=== PATIENT | female | born 1970 | race Caucasian/White ===

== ENCOUNTER 2016-09-03 17:34 | Emergency (ER) | payer OTHER ==
--- NOTE | 2016-09-03 18:57 | DIAGNOSTIC IMAGING REPORT ---
PROCEDURE: CT HEAD WITHOUT CONTRAST INDICATION: Syncope and headache. TECHNIQUE: Noncontrast axial images with sagittal and coronal reformations. COMPARISON: None. FINDINGS: Sulci, ventricular system, and brain parenchyma are normal. No evidence of acute intracranial process. Visualized mastoids and sinuses are clear. IMPRESSION: 1. Negative non-enhanced head CT. 2. Findings discussed with Dr. Cai at 06:55 p.m., [place] Standard Time.
--- NOTE | 2016-09-03 19:11 | DIAGNOSTIC IMAGING REPORT ---
PROCEDURE: XR CHEST 1 VIEW INDICATION: SYNCOPE TECHNIQUE: Portable AP view 06:46 p.m. COMPARISON: None. FINDINGS: Lungs are clear. Heart and mediastinum are normal. Thorax is normal. IMPRESSION: 1. Negative chest.
--- NOTE | 2016-09-03 21:18 | ED ORDER SUMMARY ---
..... Patient: SHERRI BAXTER OrderSheet [facility] VisitID: [id number] [place], [place] [id number] 46y, F Registration Date/Time: 09/03/2016 ORDER SHEET Weight: 65.7 kg (stated) Allergies: Amoxicillin, Latex, Opiates, Quinolones, Sulfa Antibiotics GENERAL ORDERS: Chest 1V Urgent (18:09/03/2016 Tami MARCIAL) (Ack 18:39 LNations ER Tech1) (19:02 MCampbell) Retail Associate (Continuous) (18:09/03/2016 Tami MARCIAL) (Ack 18:38 LNations ER Tech1) (19:59 RMarsden R.N.) CT Head wo Cont Urgent (18:09/03/2016 Tami MARCIAL) (Ack 18:40 LNations ER Tech1) (19:02 MCampbell) CBC w Diff Urgent (18:09/03/2016 Tami MARCIAL) (Ack 18:38 LNations ER Tech1) (Collected 19:59 RMarsden R.N.) (21:04 RMarsden R.N.) CMP Urgent (18:09/03/2016 Tami MARCIAL) (Ack 18:39 LNations ER Tech1) (Collected 19:59 RMarsden R.N.) (21:04 RMarsden R.N.) UA-Culture if indicated Urgent (18:09/03/2016 Tami MARCIAL) (Ack 18:39 LNations ER Tech1) (Collected 20:28 RMarsden R.N.) (21:04 RMarsden R.N.) PT with INR Urgent (18:09/03/2016 Tami MARCIAL) (Ack 18:39 LNations ER Tech1) (Collected 19:59 RMarsden R.N.) (21:04 RMarsden R.N.) PTT Urgent (18:09/03/2016 Tami MARCIAL) (Ack 18:39 LNations ER Tech1) (Collected 19:59 RMarsden R.N.) (21:04 RMarsden R.N.) CPK Urgent (18:09/03/2016 Tami MARCIAL) (Ack 18:39 LNations ER Tech1) (Collected 19:59 RMarsden R.N.) (21:04 RMarsden R.N.) Troponin-I Urgent (18:32 09/03/2016 Tami MARCIAL) (Ack 18:39 LNations ER Tech1) (Collected 19:59 RMarsden R.N.) (21:04 RMarsden R.N.) EKG - ER Stat (18:32 09/03/2016 Tami MARCIAL) (Ack 18:38 LNations ER Tech1) (19:10 CHagerty ER Transportation Attendant) Pulse oximeter (18:32 09/03/2016 Tami MARCIAL) (Ack 18:38 LNations ER Tech1) (19:59 RMarsden R.N.) Vitals - Orthostatic (18:32 09/03/2016 Tami MARCIAL) (Ack 18:38 LNations ER Tech1) (20:58 RMarsden R.N.) H. Pylori Antibody IgG Stat (18:39 09/03/2016 Tami MARCIAL) (Ack 18:56 LNations ER Tech1) (Collected 20:58 RMarsden R.N.) (22:05 RMarsden R.N.) Vitals - Orthostatic (18:42 09/03/2016 Tami MARCIAL) (Ack 18:56 LNations ER Tech1) (20:58 RMarsden R.N.) MEDICATION ORDERS: IV FLUIDS: IV Saline Lock (18:32 09/03/2016 Tami MARCIAL) (20:00 RMarsden R.N.) IV NS with Normal Saline 1 Liter: initial bolus 1000 mL (1000 mL/hr), then 1000 mL/hr for X2 (NOW) (20:45 09/03/2016 RMarsden R.N. verbal order read back to Tami MARCIAL) (Ack 20:46 RMarsden R.N.) (22:05 RMarsden R.N.) Verbal order read back and verified ORDER SHEET NOTES: [Electronically signed by Sherri Gordon R.N. (05:44 09/04/2016)] [Electronically signed by Oscar Cai MD (09:18 09/05/2016)] [Electronically locked/signed by Sherri Gordon R.N. (05:44 09/04/2016)]
--- NOTE | 2016-09-03 21:18 | ED CLINICAL REPORT ---
Clinical Report - Physicians/Mid Levels [facility] [address] [place] [address] 09/03/2016 17:35 Patient: AMI BAXTER Time Seen: 17:47. Arrived- By private vehicle. Historian- patient. HISTORY OF PRESENT ILLNESS The patient has recovered. Chief Complaint: SINGLE SYNCOPAL EPISODE. This occurred today. It was abrupt in onset. Event was not witnessed. The patient felt faint and lost consciousness. No seizure activity, incontinence or apnea noted. At time of event, she was standing and had just stood up. The patient had preceding symptoms of light-headedness. She had preceding symptoms of nausea (chronically). No preceding symptoms of chest pain or abdominal pain. Had a single episode. The episode lasted minutes. No injuries noted. Similar symptoms previously: Once. Diagnosis: (PVCs). REVIEW OF SYSTEMS Has had a hysterectomy. No chills, fever, sweats, calf pain or chest pain. No cough, difficulty breathing, pedal edema, bloody stools or urinary problems. She has had black stools. She has had loose stools (chronically). she reports that she has had chronic problems with nausea and vomiting and "I am not able to eat." she was seen earlier today by her primary care provider and has a HIDA scan and a gastroenterology appointment pending. additionally, she reports that in the past she has had a workup for a syncopal event and palpitations "PVCs." She says that with medications or her doctor was not able to induce these so she is not yet a candidate for an ablation. All systems otherwise negative, except as recorded above. PAST HISTORY ( PCP - [facility] - Jolie Hui). Problems: Abdominal Pain. PVC - Premature Venticular Complex(s). Knee Injury. Immunizations. Additional Surgeries: Appendectomy. Bladder sling removal . Bladder Suspension. Dilatation & Curettage. Hernia Repair. Hysterectomy. Tubal Ligation. Medications: Pantoprazole Sodium Oral. Allergies: Amoxicillin. Latex. Opiates. Quinolones. Sulfa Antibiotics. SOCIAL HISTORY Current every day heavy tobacco smoker (cigarette)- less than 1 pack per day. No alcohol use or drug use. Is a local resident. She lives with a family member. FAMILY HISTORY Stroke in first-degree relative (mother); cancer in first-degree relative (father and sibling). ADDITIONAL NOTES The nursing notes have been reviewed. PHYSICAL EXAM Vital Signs: 09/03/2016 17:35 BP: 142/83. HR: 86. RR: 16. O2 saturation: 98%. Temp: 97.8 F. Pain level now: 12/01. Have been reviewed. Appearance: Alert. No acute distress. Eyes: Pupils equal, round and reactive to light. No nystagmus. ENT: Normal ENT inspection. Moist mucous membranes. Pharynx normal. Neck: Normal inspection. Neck supple. No carotid bruit. CVS: Normal heart rate and rhythm. Heart sounds normal. Respiratory: No respiratory distress. Breath sounds normal. Abdomen: Soft and nontender. No organomegaly. Back: Normal inspection. No CVA tenderness. Rectal: Rectal exam normal and nontender. Stool heme negative. (POC test reference range: negative). (a female business objects developer was present). Skin: Skin warm and dry. Normal skin color. Normal skin turgor. Extremities: Extremities exhibit normal ROM. No calf tenderness. No lower extremity edema. Neuro: Alert. Speech normal. Cranial nerves normal (as tested). No cerebellar findings. No motor deficit. No sensory deficit. LABS, X-RAYS, AND EKG EKG: Normal EKG. Rate: 86. Prior EKG unavailable. The study has been independently viewed by me. Chest X-ray: Normal Chest X-Ray. CT Head: (IMPRESSION: 1. Negative non-enhanced head CT.). The study was interpreted contemporaneously by me and discussed with the radiologist. Laboratory Tests: UA-Culture if indicated: (DELANO: 09/03/2016 20:22) ( MsgRcvd 09/03/2016 20:42) IP Test Result Flag Units (Reference) URINE COLOR YELLOW URINE APPEARANCE CLEAR URINE GLUCOSE NEGATIVE (NEGATIVE) URINE BILIRUBIN NEGATIVE (NEGATIVE) URINE KETONE 1+ (NEGATIVE) URINE SPECIFIC GRAVITY 1.020 (1.010-1.030) URINE PH 6.0 (5.0-8.0) URINE PROTEIN NEGATIVE (NEGATIVE) URINE UROBILINOGEN 0.2 EU/dL (0.2-1.0) URINE NITRITE NEGATIVE (NEGATIVE) URINE BLOOD 2+ (NEGATIVE) URINE LEUK ESTERASE NEGATIVE (NEGATIVE) CBC w Diff: (DELANO: 09/03/2016 19:44) ( [facility] 09/03/2016 20:13) Final results Test Result Flag Units (Reference) WHITE BLOOD COUNT 8.4 K/uL (4.5-11.5) RED BLOOD COUNT 4.58 M/uL (4.00-5.20) HEMOGLOBIN 13.9 gm/dL (12.0-16.0) HEMATOCRIT 40.7 % (36.0-46.0) MEAN CELL VOLUME 89 fL (80-100) MEAN CORPUSCULAR HGB 30 pg (26-34) MEAN CORPUSCULAR HGB CONC 34 g/dL (31-37) RED CELL DISTRIBUTION WIDTH 13.0 % (11.6-14.8) PLATELET COUNT 301 K/uL (150-400) NEUTROPHIL % 65.2 % (50-75) LYMPH % 24.6 L % (25-40) MONO % 8.6 % (3-14) EOSINOPHIL % 1.0 % (0-4) BASOPHIL % 0.6 % (0-2) PT with INR: (DELANO: 09/03/2016 19:44) ( [facility] 09/03/2016 20:13) Final results Test Result Flag Units (Reference) INR 1.0 (0.8-1.2) Low Intensity Therapy: INR 1.5-2.0 PT range 18.5-23.1Mod.Intensity Therapy: INR 2.0-3.0 PT range 23.1-31.5High Intensity Therapy: INR 2.5-3.5 PT range 27.4-35.5High Intensity Therapy 2: INR 3.0-4.0 PT range 31.5-39.3 APTT 28 SECONDS (24-34) CMP: (DELANO: 09/03/2016 19:44) ( [facility] 09/03/2016 20:12) Final results Test Result Flag Units (Reference) GLUCOSE 93 mg/dL (70-110) BUN 12 mg/dL (7-18) CREATININE 0.9 mg/dL (0.6-1.3) Estimated GFR >60 mL/min Estimated GFR- >60 mL/min Note: Persistent reduction over 3 months in eGFR<60 mL/min/1.73 m2 defines CKD. Patients with eGFR values>=60 mL/min/1.73 m2 may also have CKD if evidence ofpersistent proteinuria. Additional information may be foundat www.kidney.org. SODIUM 141 mmol/L (136-145) POTASSIUM 3.7 mmol/L (3.5-5.1) CHLORIDE 106 mmol/L (98-107) CARBON DIOXIDE 26 mmol/L (21-32) CALCIUM 8.6 mg/dL (8.5-10.1) TOTAL PROTEIN 7.3 g/dL (6.4-8.2) ALBUMIN 3.8 g/dL (3.3-5.0) BILIRUBIN, TOTAL 0.4 mg/dL (0.0-1.0) ALKALINE PHOSPHATASE 46 U/L (46-116) AST (SGOT) 16 U/L (15-37) ALT (SGPT) 20 U/L (12-78) CPK 92 U/L (24-260) TROPONIN I <0.05 L ng/mL (0.00-1.5) TROPONIN REFERENCE RANGE:<0.1 NEGATIVE0.1-1.5 INDETERMINANT>1.5 POSITIVE . PROGRESS AND PROCEDURES Course of Care: Patient is stable. Patient/family counseled. Old medical records reviewed. Disposition: Discharged. Condition: stable. CLINICAL IMPRESSION Gastroesophageal reflux disease. Syncope. Diarrhea anorexia. INSTRUCTIONS Drink plenty of fluids. Warnings: Further evaluation is necessary. GENERAL WARNINGS: Return or contact your physician immediately if your condition worsens or changes unexpectedly, if not improving as expected, or if other problems arise. Your Current Medications: CONTINUE TAKING THE FOLLOWING MEDICATIONS: Pantoprazole Sodium Oral. Follow-up: Follow up with your doctor [facility] in seven days. Call for the next available appointment. Follow up with a manager loan and manager print as scheduled. Understanding of the discharge instructions verbalized by patient. (Electronically signed by Oscar Cai MD 09/05/2016 9:18)
--- NOTE | 2016-09-03 21:18 | ED ORDER SUMMARY ---
..... Patient: SHERRI BAXTER OrderSheet [facility] VisitID: [id number] [place], [place] [id number] 46y, F Registration Date/Time: 09/03/2016 ORDER SHEET Weight: 65.7 kg (stated) Allergies: Amoxicillin, Latex, Opiates, Quinolones, Sulfa Antibiotics GENERAL ORDERS: Chest 1V Urgent (18:09/03/2016 Tami MARCIAL) (Ack 18:39 LNations ER Tech1) (19:02 MCampbell) Quality Engineer Medical Device (Continuous) (18:09/03/2016 Tami MARCIAL) (Ack 18:38 LNations ER Tech1) (19:59 RMarsden R.N.) CT Head wo Cont Urgent (18:09/03/2016 Tami MARCIAL) (Ack 18:40 LNations ER Tech1) (19:02 MCampbell) CBC w Diff Urgent (18:09/03/2016 Tami MARCIAL) (Ack 18:38 LNations ER Tech1) (Collected 19:59 RMarsden R.N.) (21:04 RMarsden R.N.) CMP Urgent (18:09/03/2016 Tami MARCIAL) (Ack 18:39 LNations ER Tech1) (Collected 19:59 RMarsden R.N.) (21:04 RMarsden R.N.) UA-Culture if indicated Urgent (18:09/03/2016 Tami MARCIAL) (Ack 18:39 LNations ER Tech1) (Collected 20:28 RMarsden R.N.) (21:04 RMarsden R.N.) PT with INR Urgent (18:09/03/2016 Tami MARCIAL) (Ack 18:39 LNations ER Tech1) (Collected 19:59 RMarsden R.N.) (21:04 RMarsden R.N.) PTT Urgent (18:09/03/2016 Tami MARCIAL) (Ack 18:39 LNations ER Tech1) (Collected 19:59 RMarsden R.N.) (21:04 RMarsden R.N.) CPK Urgent (18:09/03/2016 Tami MARCIAL) (Ack 18:39 LNations ER Tech1) (Collected 19:59 RMarsden R.N.) (21:04 RMarsden R.N.) Troponin-I Urgent (18:32 09/03/2016 Tami MARCIAL) (Ack 18:39 LNations ER Tech1) (Collected 19:59 RMarsden R.N.) (21:04 RMarsden R.N.) EKG - ER Stat (18:32 09/03/2016 Tami MARCIAL) (Ack 18:38 LNations ER Tech1) (19:10 CHagerty ER Spine Supervisor) Pulse oximeter (18:32 09/03/2016 Tami MARCIAL) (Ack 18:38 LNations ER Tech1) (19:59 RMarsden R.N.) Vitals - Orthostatic (18:32 09/03/2016 Tami MARCIAL) (Ack 18:38 LNations ER Tech1) (20:58 RMarsden R.N.) H. Pylori Antibody IgG Stat (18:39 09/03/2016 Tami MARCIAL) (Ack 18:56 LNations ER Tech1) (Collected 20:58 RMarsden R.N.) (22:05 RMarsden R.N.) Vitals - Orthostatic (18:42 09/03/2016 Tami MARCIAL) (Ack 18:56 LNations ER Tech1) (20:58 RMarsden R.N.) MEDICATION ORDERS: IV FLUIDS: IV Saline Lock (18:32 09/03/2016 Tami MARCIAL) (20:00 RMarsden R.N.) IV NS with Normal Saline 1 Liter: initial bolus 1000 mL (1000 mL/hr), then 1000 mL/hr for X2 (NOW) (20:45 09/03/2016 RMarsden R.N. verbal order read back to Tami MARCIAL) (Ack 20:46 RMarsden R.N.) (22:05 RMarsden R.N.) Verbal order read back and verified ORDER SHEET NOTES: [Electronically signed by Sherri Gordon R.N. (05:44 09/04/2016)] [Electronically signed by Oscar Cai MD (09:18 09/05/2016)] [Electronically locked/signed by Sherri Gordon R.N. (05:44 09/04/2016)]
--- NOTE | 2016-09-03 21:18 | ED NURSING NOTES ---
Clinical Report - Nurses [facility] [address] [place] [address] 09/03/2016 17:35 Patient: SHERRI BAXTER TRIAGE Triage time 17:35. Chief Complaint: ABDOMINAL PAIN, NAUSEA, VOMITING and DIARRHEA. SEPSIS SCREEN: Sepsis Screen. Negative (no infection suspected/documented). --17:39 Arabella Palacio R.N. 17:35 09/03/16. BP: 142/83. HR: 86. RR: 16. O2 saturation: 98%. Temp: 97.8 F. Pain level now: 12/01. --17:39 Arabella Palacio R.N. Acuity: LEVEL 4. --17:40 Arabella Palacio R.N. Weight: 65.7 kg stated. Height/Length: 64 inches Per Patient. BMI: 24.9. --17:39 Arabella Palacio R.N. Medications Pentraprozol. --18:45 Arabella Palacio R.N. Allergies Amoxicillin. Latex. Opiates. Quinolones. Sulfa Antibiotics. --18:45 Arabella Palacio R.N. History Arrived by EMS. Historian: patient. Accompanied by friend. Primary physician (Kathy). ( Pt just got home from seeing her Dr when her friend said she found her on the floor sweating, dizzy, unresponsive. She was disoriented and unable to focus on anything when she regained consciousness.). This started just prior to arrival. ( Pt was at [facility] last night and said they were "all bitches" and told her there was nothing wrong with her.). Treatment PLATE MOLDER: Seen within the last 30 days at another facility in the ED. (Pt seen at [facility] last night (friend has paperwork from that visit)). PAST MEDICAL HX: Immunizations: status is unknown. --17:39 Arabella Palacio R.N. ( Patient states all this pain started in June). --17:40 Arabella Palacio R.N. SOCIAL HX: Light tobacco smoker- less than 1/2 a pack per day. Occasional alcohol use. No drug use. No infectious disease exposure. SELF HARM ASSESSMENT: A self harm assessment was performed. (Pt unable to answer seriously). FALL RISK ASSESSMENT: Fall risk assessment completed. No fall risk identified. --17:41 Arabella Palacio R.N. PROBLEMS: Abdominal Pain. PVC - Premature Venticular Complex(s). Knee Injury. Immunizations. --18:45 Arabella Palacio R.N. ADDITIONAL SURGERIES: Appendectomy. Bladder sling removal . Bladder Suspension. Dilatation & Curettage. Hernia Repair. Hysterectomy. Tubal Ligation. --18:46 Arabella Palacio R.N. Interventions ID band on patient. --17:39 Arabella Palacio R.N. PHYSICAL ASSESSMENT To room via stretcher. Patient gowned. GENERAL / NEURO / PSYCH: Alert. Oriented X 4. Appears anxious. RESPIRATORY: Respirations not labored. CVS: Normal sinus rhythm noted. Capillary refill less than 2 seconds. SKIN: Skin is warm and dry. --17:42 Arabella Palacio R.N. NURSING PROGRESS NOTES Patient gowned. Reassurance given. Two patient identifiers checked. Call light placed in reach. Side rails up. Bed placed in lowest position. Brakes of bed on. Patient ready for evaluation- ED physician notified. --17:42 Arabella Palacio R.N. Patient transported to radiology by stretcher with tech. (18:39). --18:39 Arabella Palacio R.N. Patient returned from radiology by stretcher with tech. (18:48). --18:48 Arabella Palacio R.N. EKG time: (1907). EKG was ordered, performed and shown to the ED physician. done by RT. --19:11 Jason Chew, ER Company Accountant 19:17. Care transferred and report received (from Arabella FITZGERALD). --19:58 Sherri Gordon R.N. 19:44 09/03/2016 Site #1 started via IV in the right wrist with an 20g angiocath; one attempt. Blood drawn: rainbow set. Labeled in the presence of the patient and sent to the lab. Saline lock flushed with 10 mL saline. --20:00 Sherri Gordon R.N. 19:32. Patient ID band checked for patient name and birthdate: patient confirmed. Blood samples drawn from the right wrist by nurse per protocol ; labeled in presence of the patient: rainbow set. Line flushed with 10 mL normal saline post blood draw. Hemoccult test negative. (POC test reference range: negative). --20:20 Sherri Gordon R.N. 19:56. ( witnessed rectal exam performed by ED MD (10 minutes). see guaiac results above.). --20:21 Sherri Gordon R.N. 20:00. ( patient ambulated to bathroom.). --20:21 Sherri Gordon R.N. 20:29 09/03/16. Patient ID band checked for patient name and birthdate: patient confirmed. Instructions provided to collect clean catch urine and patient verbalized understanding. Clean catch urine collected with return of yellow-colored clear urine; sample sent to lab for urinalysis. Specimen labeled in the presence of the patient. --20:29 Sherri Gordon R.N. ( orthostatic vitals performed (see vitals flow sheet).). --21:04 Sherri Gordon R.N. 19:56 09/03/2016 Started bag #1 1000 mL IV Fluids IV NS (Saline); bolus of 1000 mL wide open via site #1. Allergies verified and confirmed 5 rights. IV patency established. IV site checked: no pain, redness, or swelling. IV flushed thoroughly pre- and post-medication administration. Completed per protocol. --22:05 Sherri Gordon R.N. 21:51 09/03/2016 Site #1 removed upon discharge. Manual pressure and bandaid applied. --22:06 Sherri Gordon R.N. 21:51 09/03/2016 IV Fluids IV NS Discontinued: bag #1 completed upon discharge. Total amount infused: 1000 mL. IV patency established. IV site checked: no pain, redness, or swelling. IV flushed thoroughly. --22:06 Sherri Gordon R.N. DISPOSITION / DISCHARGE 22:01. No learning barriers present. Discharge instructions provided and reviewed with the patient. Reviewed referrals. Reviewed diet. Patient and physical therapy director verbalized understanding. Written instructions provided in Dutch. The patient was discharged home and accompanied by physical therapy director. She left the Emergency Department ambulatory and via private vehicle. Laundry Sorter driving. --22:04 Sherri Gordon R.N. 21:58 09/03/16. BP: 114/66. HR: 81. RR: 17. O2 saturation: 100% on room air. Temp: deferred. Pain level now: 0/10. --22:04 Sherri Gordon R.N. Locked/Released at 09/04/2016 5:44 by Sherri Gordon R.N.
--- NOTE | 2016-09-03 21:18 | ED NURSING NOTES ---
Clinical Report - Nurses [address] [place] [address] 09/03/2016 17:35 Patient: SHERRI BAXTER TRIAGE Triage time 17:35. Chief Complaint: ABDOMINAL PAIN, NAUSEA, VOMITING and DIARRHEA. SEPSIS SCREEN: Sepsis Screen. Negative (no infection suspected/documented). --17:39 Arabella Palacio R.N. 17:35 09/03/16. BP: 142/83. HR: 86. RR: 16. O2 saturation: 98%. Temp: 97.8 F. Pain level now: 12/01. --17:39 Arabella Palacio R.N. Acuity: LEVEL 4. --17:40 Arabella Palacio R.N. Weight: 65.7 kg stated. Height/Length: 64 inches Per Patient. BMI: 24.9. --17:39 Arabella Palacio R.N. Medications Pentraprozol. --18:45 Arabella Palacio R.N. Allergies Amoxicillin. Latex. Opiates. Quinolones. Sulfa Antibiotics. --18:45 Arabella Palacio R.N. History Arrived by EMS. Historian: patient. Accompanied by friend. Primary physician (Kathy). ( Pt just got home from seeing her Dr when her friend said she found her on the floor sweating, dizzy, unresponsive. She was disoriented and unable to focus on anything when she regained consciousness.). This started just prior to arrival. ( Pt was at [facility] last night and said they were "all bitches" and told her there was nothing wrong with her.). 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 (Pt seen at [facility] last night (friend has paperwork from that visit)). PAST MEDICAL HX: Immunizations: status is unknown. --17:39 Arabella Palacio R.N. ( Patient states all this pain started in June). --17:40 Arabella Palacio R.N. SOCIAL HX: Light tobacco smoker- less than 1/2 a pack per day. Occasional alcohol use. No drug use. No infectious disease exposure. SELF HARM ASSESSMENT: A self harm assessment was performed. (Pt unable to answer seriously). FALL RISK ASSESSMENT: Fall risk assessment completed. No fall risk identified. --17:41 Arabella Palacio R.N. PROBLEMS: Abdominal Pain. PVC - Premature Venticular Complex(s). Knee Injury. Immunizations. --18:45 Arabella Palacio R.N. ADDITIONAL SURGERIES: Appendectomy. Bladder sling removal . Bladder Suspension. Dilatation & Curettage. Hernia Repair. Hysterectomy. Tubal Ligation. --18:46 Arabella Palacio R.N. Interventions ID band on patient. --17:39 Arabella Palacio R.N. PHYSICAL ASSESSMENT To room via stretcher. Patient gowned. GENERAL / NEURO / PSYCH: Alert. Oriented X 4. Appears anxious. RESPIRATORY: Respirations not labored. CVS: Normal sinus rhythm noted. Capillary refill less than 2 seconds. SKIN: Skin is warm and dry. --17:42 Arabella Palacio R.N. NURSING PROGRESS NOTES Patient gowned. Reassurance given. Two patient identifiers checked. Call light placed in reach. Side rails up. Bed placed in lowest position. Brakes of bed on. Patient ready for evaluation- ED physician notified. --17:42 Arabella Palacio R.N. Patient transported to radiology by stretcher with tech. (18:39). --18:39 Arabella Palacio R.N. Patient returned from radiology by stretcher with tech. (18:48). --18:48 Arabella Palacio R.N. EKG time: (1907). EKG was ordered, performed and shown to the ED physician. done by RT. --19:11 Jason hCew, ER Radiologic Technology Instructor 19:17. Care transferred and report received (from Arabella FITZGERALD). --19:58 Sherri Gordon R.N. 19:44 09/03/2016 Site #1 started via IV in the right wrist with an 20g angiocath; one attempt. Blood drawn: rainbow set. Labeled in the presence of the patient and sent to the lab. Saline lock flushed with 10 mL saline. --20:00 Sherri Gordon R.N. 19:32. Patient ID band checked for patient name and birthdate: patient confirmed. Blood samples drawn from the right wrist by nurse per protocol ; labeled in presence of the patient: rainbow set. Line flushed with 10 mL normal saline post blood draw. Hemoccult test negative. (POC test reference range: negative). --20:20 Sherri Gordon R.N. 19:56. ( witnessed rectal exam performed by ED MD (10 minutes). see guaiac results above.). --20:21 Sherri Gordon R.N. 20:00. ( patient ambulated to bathroom.). --20:21 Sherri Gordon R.N. 20:29 09/03/16. Patient ID band checked for patient name and birthdate: patient confirmed. Instructions provided to collect clean catch urine and patient verbalized understanding. Clean catch urine collected with return of yellow-colored clear urine; sample sent to lab for urinalysis. Specimen labeled in the presence of the patient. --20:29 Sherri Gordon R.N. ( orthostatic vitals performed (see vitals flow sheet).). --21:04 Sherri Gordon R.N. 19:56 09/03/2016 Started bag #1 1000 mL IV Fluids IV NS (Saline); bolus of 1000 mL wide open via site #1. Allergies verified and confirmed 5 rights. IV patency established. IV site checked: no pain, redness, or swelling. IV flushed thoroughly pre- and post-medication administration. Completed per protocol. --22:05 Sherri Gordon R.N. 21:51 09/03/2016 Site #1 removed upon discharge. Manual pressure and bandaid applied. --22:06 Sherri Gordon R.N. 21:51 09/03/2016 IV Fluids IV NS Discontinued: bag #1 completed upon discharge. Total amount infused: 1000 mL. IV patency established. IV site checked: no pain, redness, or swelling. IV flushed thoroughly. --22:06 Sherri Gordon R.N. DISPOSITION / DISCHARGE 22:01. No learning barriers present. Discharge instructions provided and reviewed with the patient. Reviewed referrals. Reviewed diet. Patient and check embosser verbalized understanding. Written instructions provided in Malian. The patient was discharged home and accompanied by check embosser. She left the Emergency Department ambulatory and via private vehicle. Wing Commander driving. --22:04 Sherri Gordon R.N. 21:58 09/03/16. BP: 114/66. HR: 81. RR: 17. O2 saturation: 100% on room air. Temp: deferred. Pain level now: 0/10. --22:04 Sherri Gordon R.N. Locked/Released at 09/04/2016 5:44 by Sherri Gordon R.N.
--- NOTE | 2016-09-03 21:18 | ED CLINICAL REPORT ---
Clinical Report - Physicians/Mid Levels [facility] [address] [place] [address] 09/03/2016 17:35 Patient: AMI BAXTER Time Seen: 17:47. Arrived- By private vehicle. Historian- patient. HISTORY OF PRESENT ILLNESS The patient has recovered. Chief Complaint: SINGLE SYNCOPAL EPISODE. This occurred today. It was abrupt in onset. Event was not witnessed. The patient felt faint and lost consciousness. No seizure activity, incontinence or apnea noted. At time of event, she was standing and had just stood up. The patient had preceding symptoms of light-headedness. She had preceding symptoms of nausea (chronically). No preceding symptoms of chest pain or abdominal pain. Had a single episode. The episode lasted minutes. No injuries noted. Similar symptoms previously: Once. Diagnosis: (PVCs). REVIEW OF SYSTEMS Has had a hysterectomy. No chills, fever, sweats, calf pain or chest pain. No cough, difficulty breathing, pedal edema, bloody stools or urinary problems. She has had black stools. She has had loose stools (chronically). she reports that she has had chronic problems with nausea and vomiting and "I am not able to eat." she was seen earlier today by her primary care provider and has a HIDA scan and a gastroenterology appointment pending. additionally, she reports that in the past she has had a workup for a syncopal event and palpitations "PVCs." She says that with medications or her doctor was not able to induce these so she is not yet a candidate for an ablation. All systems otherwise negative, except as recorded above. PAST HISTORY ( PCP - [facility] - Jolie Hui). Problems: Abdominal Pain. PVC - Premature Venticular Complex(s). Knee Injury. Immunizations. Additional Surgeries: Appendectomy. Bladder sling removal . Bladder Suspension. Dilatation & Curettage. Hernia Repair. Hysterectomy. Tubal Ligation. Medications: Pantoprazole Sodium Oral. Allergies: Amoxicillin. Latex. Opiates. Quinolones. Sulfa Antibiotics. SOCIAL HISTORY Current every day heavy tobacco smoker (cigarette)- less than 1 pack per day. No alcohol use or drug use. Is a local resident. She lives with a family member. FAMILY HISTORY Stroke in first-degree relative (mother); cancer in first-degree relative (father and sibling). ADDITIONAL NOTES The nursing notes have been reviewed. PHYSICAL EXAM Vital Signs: 09/03/2016 17:35 BP: 142/83. HR: 86. RR: 16. O2 saturation: 98%. Temp: 97.8 F. Pain level now: 12/01. Have been reviewed. Appearance: Alert. No acute distress. Eyes: Pupils equal, round and reactive to light. No nystagmus. ENT: Normal ENT inspection. Moist mucous membranes. Pharynx normal. Neck: Normal inspection. Neck supple. No carotid bruit. CVS: Normal heart rate and rhythm. Heart sounds normal. Respiratory: No respiratory distress. Breath sounds normal. Abdomen: Soft and nontender. No organomegaly. Back: Normal inspection. No CVA tenderness. Rectal: Rectal exam normal and nontender. Stool heme negative. (POC test reference range: negative). (a female peer support specialist was present). Skin: Skin warm and dry. Normal skin color. Normal skin turgor. Extremities: Extremities exhibit normal ROM. No calf tenderness. No lower extremity edema. Neuro: Alert. Speech normal. Cranial nerves normal (as tested). No cerebellar findings. No motor deficit. No sensory deficit. LABS, X-RAYS, AND EKG EKG: Normal EKG. Rate: 86. Prior EKG unavailable. The study has been independently viewed by me. Chest X-ray: Normal Chest X-Ray. CT Head: (IMPRESSION: 1. Negative non-enhanced head CT.). The study was interpreted contemporaneously by me and discussed with the radiologist. Laboratory Tests: UA-Culture if indicated: (DELANO: 09/03/2016 20:22) ( MsgRcvd 09/03/2016 20:42) IP Test Result Flag Units (Reference) URINE COLOR YELLOW URINE APPEARANCE CLEAR URINE GLUCOSE NEGATIVE (NEGATIVE) URINE BILIRUBIN NEGATIVE (NEGATIVE) URINE KETONE 1+ (NEGATIVE) URINE SPECIFIC GRAVITY 1.020 (1.010-1.030) URINE PH 6.0 (5.0-8.0) URINE PROTEIN NEGATIVE (NEGATIVE) URINE UROBILINOGEN 0.2 EU/dL (0.2-1.0) URINE NITRITE NEGATIVE (NEGATIVE) URINE BLOOD 2+ (NEGATIVE) URINE LEUK ESTERASE NEGATIVE (NEGATIVE) CBC w Diff: (DELANO: 09/03/2016 19:44) ( [facility] 09/03/2016 20:13) Final results Test Result Flag Units (Reference) WHITE BLOOD COUNT 8.4 K/uL (4.5-11.5) RED BLOOD COUNT 4.58 M/uL (4.00-5.20) HEMOGLOBIN 13.9 gm/dL (12.0-16.0) HEMATOCRIT 40.7 % (36.0-46.0) MEAN CELL VOLUME 89 fL (80-100) MEAN CORPUSCULAR HGB 30 pg (26-34) MEAN CORPUSCULAR HGB CONC 34 g/dL (31-37) RED CELL DISTRIBUTION WIDTH 13.0 % (11.6-14.8) PLATELET COUNT 301 K/uL (150-400) NEUTROPHIL % 65.2 % (50-75) LYMPH % 24.6 L % (25-40) MONO % 8.6 % (3-14) EOSINOPHIL % 1.0 % (0-4) BASOPHIL % 0.6 % (0-2) PT with INR: (DELANO: 09/03/2016 19:44) ( [facility] 09/03/2016 20:13) Final results Test Result Flag Units (Reference) INR 1.0 (0.8-1.2) Low Intensity Therapy: INR 1.5-2.0 PT range 18.5-23.1Mod.Intensity Therapy: INR 2.0-3.0 PT range 23.1-31.5High Intensity Therapy: INR 2.5-3.5 PT range 27.4-35.5High Intensity Therapy 2: INR 3.0-4.0 PT range 31.5-39.3 APTT 28 SECONDS (24-34) CMP: (DELANO: 09/03/2016 19:44) ( [facility] 09/03/2016 20:12) Final results Test Result Flag Units (Reference) GLUCOSE 93 mg/dL (70-110) BUN 12 mg/dL (7-18) CREATININE 0.9 mg/dL (0.6-1.3) Estimated GFR >60 mL/min Estimated GFR- >60 mL/min Note: Persistent reduction over 3 months in eGFR<60 mL/min/1.73 m2 defines CKD. Patients with eGFR values>=60 mL/min/1.73 m2 may also have CKD if evidence ofpersistent proteinuria. Additional information may be foundat www.kidney.org. SODIUM 141 mmol/L (136-145) POTASSIUM 3.7 mmol/L (3.5-5.1) CHLORIDE 106 mmol/L (98-107) CARBON DIOXIDE 26 mmol/L (21-32) CALCIUM 8.6 mg/dL (8.5-10.1) TOTAL PROTEIN 7.3 g/dL (6.4-8.2) ALBUMIN 3.8 g/dL (3.3-5.0) BILIRUBIN, TOTAL 0.4 mg/dL (0.0-1.0) ALKALINE PHOSPHATASE 46 U/L (46-116) AST (SGOT) 16 U/L (15-37) ALT (SGPT) 20 U/L (12-78) CPK 92 U/L (24-260) TROPONIN I <0.05 L ng/mL (0.00-1.5) TROPONIN REFERENCE RANGE:<0.1 NEGATIVE0.1-1.5 INDETERMINANT>1.5 POSITIVE . PROGRESS AND PROCEDURES Course of Care: Patient is stable. Patient/family counseled. Old medical records reviewed. Disposition: Discharged. Condition: stable. CLINICAL IMPRESSION Gastroesophageal reflux disease. Syncope. Diarrhea anorexia. INSTRUCTIONS Drink plenty of fluids. Warnings: Further evaluation is necessary. GENERAL WARNINGS: Return or contact your physician immediately if your condition worsens or changes unexpectedly, if not improving as expected, or if other problems arise. Your Current Medications: CONTINUE TAKING THE FOLLOWING MEDICATIONS: Pantoprazole Sodium Oral. Follow-up: Follow up with your doctor [facility] in seven days. Call for the next available appointment. Follow up with a tapping machine operator and professional athletes coach as scheduled. Understanding of the discharge instructions verbalized by patient. (Electronically signed by Oscar Cai MD 09/05/2016 9:18)
--- NOTE | 2016-09-05 09:18 | ED DISCHARGE INSTRUCTIONS ---
Patient: AMI BAXTER General Instructions [facility] VisitID: [id number] [place] [address] 46y, F Registration Date/Time: 09/03/2016 Gastroesophageal reflux disease. Syncope. Diarrhea anorexia. INSTRUCTIONS Drink plenty of fluids. Warnings: Further evaluation is necessary. GENERAL WARNINGS: Return or contact your physician immediately if your condition worsens or changes unexpectedly, if not improving as expected, or if other problems arise. Your Current Medications: CONTINUE TAKING THE FOLLOWING MEDICATIONS: Pantoprazole Sodium Oral. Follow-up: Follow up with your doctor [facility] in seven days. Call for the next available appointment. Follow up with a inspector soldering and savings counselor as scheduled. Understanding of the discharge instructions verbalized by patient. ADDITIONAL INFORMATION Fainting:Uncertain Cause Fainting (syncope) is a temporary loss of consciousness ("passing out"). It occurs when blood flow to the brain is reduced. Near-fainting ("near-syncope") is very similar to fainting, but you do not fully "pass out". The common minor causes of fainting include: sudden fear, pain, nausea, emotional stress and overexertion. Suddenly standing up after sitting or lying for a long time can also cause fainting. The more serious causes for fainting are due to either a very slow or very fast or very slow heart beat ("arrhythmia"), other types of heart disease, dehydration, blood loss, seizure, stroke or ruptured blood vessel in the brain. Taking too much high blood pressure medicine can also cause low blood pressure and fainting. The exact cause of your episode is not certain. However, the tests today did not show any of the serious causes of fainting. Sometimes further testing is needed to find out if a serious problem exists. Therefore, it is important that you follow-up with your doctor as advised. Home Care: 1) Rest today. You may resume your normal activities when you are feeling back to normal. It is best to remain with someone who can check on you for the next 24 hours to watch for another episode of fainting. 2) If you become light-headed or dizzy, lie down immediately or sit with your head between your knees. 3) Because we do not know the exact cause of your near fainting spell, it is possible for another spell to occur without warning. Therefore, do not drive a car or operate dangerous equipment, do not take a bath alone (use a shower instead) and do not swim alone until your doctor says that you are no longer in danger of having another fainting spell. Follow Up with your doctor as advised. Get Prompt Medical Attention if any of the following occur: -- Another fainting spell occurs, which is not explained by the common causes listed above -- Chest, arm, neck, jaw, back or abdominal pain -- Shortness of breath -- Severe headache or seizure -- Blood in vomit, stools (black or red color) -- Unexpected vaginal bleeding -- Palpitations (very rapid or very slow or irregular heart beat) -- Signs of stroke: Weakness of an arm or leg or one side of the face Difficulty with speech or vision Extreme drowsiness, confusion, dizziness or fainting Diarrhea, Uncertain Cause (Adult, Report Pending) Diarrhea has several possible causes. Commonstomach fluis caused by a virus. Food poisoning, bacteria or parasites are other causes for diarrhea. Only diarrhea caused by bacteria or parasites requires treatment with an antibiotic. Diarrhea from a virus or food poisoning improves with simple home treatment. A stool sample is needed to make the diagnosis of an infection with bacteria or parasites. Up to three stool specimens may be required to diagnose This may take up to two days to get the result. It may be necessary to wait until the stool test is complete to make the diagnosis and select the best antibiotic to prescribe. Home Care: If symptoms are severe, rest at home for the next 24 hours or until you are feeling better. You may use acetaminophen (Tylenol) or ibuprofen (Motrin, Advil) to control fever, unless another medicine was prescribed. [NOTE: If you have chronic liver or kidney disease or ever had a stomach ulcer or GI bleeding, talk with your doctor before using these medicines.] (Aspirin should never be used in anyone under 18 years of age who is ill with a fever. It may cause severe liver damage.) Avoid tobacco, caffeine and alcohol, which may worsen your symptoms. If anti-diarrhea medicine was prescribed, take this only as directed. Sometimes anti-diarrhea medicine can make your condition worse if the cause is an infectious diarrhea. Therefore, anti-diarrhea medicine should not be taken for this condition unless advised by your doctor. During The First 12-24 Hours follow the diet below: BEVERAGES: Sport drinks like Gatorade, soft drinks without caffeine; yoana indy, mineral water (plain or flavored), decaffeinated tea and coffee. SOUPS: Clear broth, consomm and bouillon DESSERTS: Plain gelatin (Jell-O), popsicles and fruit juice bars. During The Next 24 Hours you may add the following to the above: Hot cereal, plain toast, bread, rolls, crackers Plain noodles, rice, mashed potatoes, chicken noodle or rice soup Unsweetened canned fruit (avoid pineapple), bananas Limit fat intake to less than 15 grams per day by avoiding margarine, butter, oils, mayonnaise, sauces, gravies, fried foods, peanut butter, meat, poultry and fish. Limit fiber; avoid raw or cooked vegetables, fresh fruits (except bananas) and bran cereals. Limit caffeine and chocolate. No spices or seasonings except salt. During The Next 24 Hours Gradually resume a normal diet, as you feel better and your symptoms lessen. Follow Up with your doctor or as advised if you are not improving over the next two days. If you were asked to bring a specimen from home, bring the sample on the day of collection. You may call in 2 days (or as directed) for the results. Get Prompt Medical Attention if any of the following occur: Increasing abdominal pain or constant lower right abdominal pain Continued vomiting (unable to keep liquids down) Frequent diarrhea (more than 5 times a day) Blood in vomit or stool (black or red color) Reduced oral intake Dark urine, reduced urine output Weakness, dizziness, fainting Drowsiness, confusion, stiff neck or seizure Fever of 100.4F (38C) oral or higher, not better with fever medication New rash GERD (Adult) The esophagus is a tube that carries food from the mouth to the stomach. A valve at the lower end of the esophagus prevents stomach acid from flowing upward. If this valve does not work properly, acid from the stomach enters the esophagus. If this occurs over and over, the acid will injure the lining of the esophagus. This condition is called GERD (gastroesophageal reflux disease) or acid reflux. When stomach acid flows upward into the esophagus, it causes burning, pressure or sharp pain in the upper abdomen or mid to lower chest. The pain can spread to the neck, back, or shoulder, similar to heart pain (angina). There may be belching, an acid taste in the back of the throat, chronic cough, or sore throat or hoarseness. GERD symptoms often occur during the day after a big meal, but it can also occur at night when lying down. Smoking,as well as drinking alcohol, increases the risk of GERD. GERD is a chronic condition. Once it begins, it is often lifelong. Treatment includes changes in eating habits and the use of acid jay medications to decrease the amount of acid in the stomach. Symptoms often improve with treatment, but if treatment is stopped, the symptoms usually return after a few months. So most persons with GERD will need to continue treatment. Home Care: Take the prescribed acid jay medication for the full course of treatment even if you begin to feel better sooner. This medication can take up to several days to fully control your symptoms. If you cant afford the prescribed medication, you can try fyif-ejz-ofqparq acid blockers, such as Pepcid AC, Tagamet, Zantac, or Aciphex. If these do not relieve your symptoms, a stronger acid-jay can be tried, such as Prilosec OTC. You can use antacids, such as Tums, Rolaids, Mylanta, or Maalox, for pain. This will be useful the first few days after starting acid blockers when the blockers havent started working yet. Follow the directions on the label. Liquid antacids may work better than tablets. Note that antacids can interfere with absorption of certain medications. Specifically, do not take Tagamet (cimetidine), Zantac (ranitidine), or Carafate (sucralfate) within 1 hour of taking an antacid. Talk with your pharmacist if you have any questions. Limit or avoid fatty, fried, and spicy foods, as well as coffee, chocolate, mint, and foods with high acid content such as tomatoes and citrus fruit and juices (orange, grapefruit, lemon). Avoid alcohol and smoking. Dont eat large meals, especially at night. Frequent, smaller meals are best. Do not lie down right after eating. And dont eat anything 3 hours before going to bed. If you are overweight, losing weight will reduce symptoms. Women should not wear corsets or girdles because this increases pressure on the stomach and worsens reflux. If your symptoms occur during sleep, use a foam wedge to elevate your upper body (not just your head.) Or, place 4" blocks under the head of your bed. Follow Up with your doctor or as advised by our staff. Further testing may be needed. If you do not begin to improve over the next 4 days, contact your doctor. If you had an x-ray, CT scan, or ECG (electrocardiogram), it will be reviewed by a specialist. Youll be notified of any new findings that affect your care. Get Prompt Medical Attention if any of the following occur: Stomach pain gets worse or moves to the lower right abdomen (appendix area) Chest pain appears or gets worse, or spreads to the back, neck, shoulder, or arm Frequent vomiting (cant keep down liquids) Blood in the stool or vomit (red or black in color) Feeling weak or dizzy, fainting, or trouble breathing Fever of 100.4F (38C) or higher, or as directed by your healthcare provider You have been given the following additional information: Syncope, Unk Cause Diarrhea, Unk Cause (Adult) Report Pendg GERD (Adult) (Electronically signed by Oscar Cai MD 09/05/2016 9:18)
--- NOTE | 2016-09-05 09:19 | ED MED RECONCILIATION SUMMARY ---
Patient: AMI BAXTER Medication Reconciliation Report [facility] VisitID: [id number] [address] [place] [address] 46y, F Registration Date/Time: 09/03/2016 Weight: 65.7 kg Height/Length: 64 in. BMI: 24.9 ALLERGIES: Amoxicillin, Latex, Opiates, Quinolones, Sulfa Antibiotics The patient's Home Medications are listed below: CONTINUE TAKING THE FOLLOWING MEDICATIONS: Pantoprazole Sodium Oral The source(s) of the original Home Medication information: Not obtained. The following Medications were given to the patient in the Emergency Department: IV NS IV Fluids bolus 1000 mL wide open, administered: 09/03/2016 7:56:00 PM The following Medications were prescribed to the patient: None.
--- NOTE | 2016-09-05 09:19 | ED MAR SUMMARY ---
..... Medication Administration Record [facility] [address] [place] [address] Patient: AMI BAXTER Visit ID: [id number] 46y, F Weight: 65.7 kg Height/Length: 64 in BMI: 24.9 ALLERGIES: Amoxicillin, Latex, Opiates, Quinolones, Sulfa Antibiotics Start 19:56 09/03/2016 Ami Gordon RDionicioN., Stop 21:51 09/03/2016 Ami Gordon R.N. Medication Administered: IV NS (SALINE), Dose: IV Fluids, Bolus: 1000 mL wide open, Dispensed: 1000 mL bag, Site: #1 right wrist. Medication Ordered: IV NS with Normal Saline 1 Liter: initial bolus 1000 mL (1000 mL/hr), then 1000 mL/hr for X2 (NOW).
--- NOTE | 2016-09-05 09:19 | ED MAR SUMMARY ---
..... Medication Administration Record [facility] [address] [place] [address] Patient: AMI BAXTER Visit ID: [id number] 46y, F Weight: 65.7 kg Height/Length: 64 in BMI: 24.9 ALLERGIES: Amoxicillin, Latex, Opiates, Quinolones, Sulfa Antibiotics Start 19:56 09/03/2016 Ami Gordon RDionicioN., Stop 21:51 09/03/2016 Ami Gordon R.N. Medication Administered: IV NS (SALINE), Dose: IV Fluids, Bolus: 1000 mL wide open, Dispensed: 1000 mL bag, Site: #1 right wrist. Medication Ordered: IV NS with Normal Saline 1 Liter: initial bolus 1000 mL (1000 mL/hr), then 1000 mL/hr for X2 (NOW).
--- NOTE | 2016-09-05 09:19 | ED MED RECONCILIATION SUMMARY ---
Patient: AMI BAXTER Medication Reconciliation Report [facility] VisitID: [id number] [address] [place] [address] 46y, F Registration Date/Time: 09/03/2016 Weight: 65.7 kg Height/Length: 64 in. BMI: 24.9 ALLERGIES: Amoxicillin, Latex, Opiates, Quinolones, Sulfa Antibiotics The patient's Home Medications are listed below: CONTINUE TAKING THE FOLLOWING MEDICATIONS: Pantoprazole Sodium Oral The source(s) of the original Home Medication information: Not obtained. The following Medications were given to the patient in the Emergency Department: IV NS IV Fluids bolus 1000 mL wide open, administered: 09/03/2016 7:56:00 PM The following Medications were prescribed to the patient: None.
== END 2016-09-03 22:01 | disposition home or self-care (01) ==
LOC: ED SRH 17:34
DX: K21.9 Gastro-esophageal reflux disease without esophagitis (principal); R55 Syncope and collapse; R19.7 Diarrhea, unspecified; R63.0 Anorexia; Z79.899 Other long term (current) drug therapy; F17.210 Nicotine dependence, cigarettes, uncomplicated; Z88.0 Allergy status to penicillin; Z88.2 Allergy status to sulfonamides; Z88.5 Allergy status to narcotic agent; Z91.040 Latex allergy status
CPT/HCPCS: 90004; 90100; 90298; 90469; 90616; 92610; 94001; 94060; 95059